=== PATIENT | male | born 1945 | race Caucasian/White ===

== ENCOUNTER 2016-08-31 13:56 | Emergency (ER) | payer OTHER, MEDICARE ==
[2016-08-31 14:14] VITALS: BMI 33.0
--- NOTE | 2016-08-31 14:19 | PDOC ---
History of Present Illness - History of Present Illness Initial Comments: 08/31/16 14:45 The patient is a 70 year old male with a PMHx of HTN who presents to the ED with coughing and chills for 4 days. He reports his cough had green colored sputum. Patient also reports feeling generalized weakness. He denies sick contacts or recent travels. He denies nausea, vomiting, diarrhea. He denies chest pain, shortness of breath. <Khuhsboo Garibay - Last Filed: 08/31/16 14:45> - General History Source: Patient Exam Limitations: No Limitations <Reed Combs - Last Filed: 08/31/16 16:20> - General Chief Complaint: Cold Symptoms Stated Complaint: cough Time Seen by Provider: 08/31/16 13:59 Past History <Khushboo Garibay - Last Filed: 08/31/16 14:45> - Past Medical History HTN: Yes - Surgical History Abdominal Surgery: Yes Appendectomy: Yes - Immunization History Immunization Up to Date: No - Psycho/Social/Smoking Cessation Hx Anxiety: No Suicidal Ideation: No Smoking History: Never smoked Have you smoked in the past 12 months: No Information on smoking cessation initiated: No Hx Alcohol Use: No Drug/Substance Use Hx: No Substance Use Type: None <Reed Combs - Last Filed: 08/31/16 16:20> - Past Medical History Allergies/Adverse Reactions: Allergies Allergy/AdvReac Type Severity Reaction Status Date / Time No Known Allergies Allergy Verified 09/30/14 14:48 Home Medications: Ambulatory Orders Nifedipine ER [Procardia XL -] 60 mg PO DAILY 06/16/14 Valsartan [Diovan] 160 mg PO DAILY 06/16/14 Albuterol Sulfate Inhaler - [Ventolin HFA Inhaler -] 1 - 2 inh PO Q4H PRN #1 inhaler 08/31/16 Azithromycin 250 mg PO DAILY #4 tablet 08/31/16 Review of Systems - Review of Systems Comments:: 08/31/16 14:45 GENERAL/CONSTITUTIONAL: + chills, generalized weakness. No fever. HEAD, EYES, EARS, NOSE AND THROAT: No change in vision. No ear pain or discharge. No sore throat. CARDIOVASCULAR: No chest pain or shortness of breath. RESPIRATORY: + productive cough. No wheezing, or hemoptysis. GASTROINTESTINAL: No nausea, vomiting, diarrhea or constipation. GENITOURINARY: No dysuria, frequency, or change in urination. MUSCULOSKELETAL: No joint or muscle swelling or pain. No neck or back pain. SKIN: No rash NEUROLOGIC: No headache, vertigo, loss of consciousness, or change in strength/ sensation. ENDOCRINE: No increased thirst. No abnormal weight change. HEMATOLOGIC/LYMPHATIC: No anemia, easy bleeding, or history of blood clots. ALLERGIC/IMMUNOLOGIC: No hives or skin allergy. <GaribayKhushboo A - Last Filed: 08/31/16 14:45> *Physical Exam - Vital Signs Last Vital Signs Temp Pulse Resp BP Pulse Ox 98.5 F 73 16 136/90 93 L 08/31/16 13:58 08/31/16 13:58 08/31/16 13:58 08/31/16 13:58 08/31/16 13:58 - Physical Exam Comments: 08/31/16 14:46 GENERAL: Awake, alert, and fully oriented, in no acute distress HEAD: No signs of trauma EYES: PERRLA, EOMI, sclera anicteric, conjunctiva clear ENT: Auricles normal inspection, hearing grossly normal, nares patent, oropharynx clear without exudates. Moist mucosa NECK: Normal ROM, supple, no lymphadenopathy, JVD, or masses LUNGS: Breath sounds equal, clear to auscultation bilaterally. No wheezes, and no crackles HEART: Regular rate and rhythm, normal S1 and S2, no murmurs, rubs or gallops ABDOMEN: Soft, nontender, normoactive bowel sounds. No guarding, no rebound. No masses EXTREMITIES: Normal range of motion, no edema. No clubbing or cyanosis. No cords, erythema, or tenderness NEUROLOGICAL: Cranial nerves II through XII grossly intact. Normal speech, normal gait SKIN: Warm, Dry, normal turgor, no rashes or lesions noted. <Theresa Garibayfarzad English - Last Filed: 08/31/16 14:45> - Vital Signs Last Vital Signs Temp Pulse Resp BP Pulse Ox 98.5 F 73 16 136/90 93 L 08/31/16 13:58 08/31/16 13:58 08/31/16 13:58 08/31/16 13:58 08/31/16 13:58 <Reed Combs - Last Filed: 08/31/16 16:20> Heart Score/ECG Review #1 ECG reviewed & interpreted by me at: 14:40 08/31/16 15:50 NSR 63, no std/abel, TWI III, normal axis, normal intervals, QTC 417 msec <Reed Combs - Last Filed: 08/31/16 16:20> ED Treatment Course - LABORATORY CBC & Chemistry Diagram: 08/31/16 14:25 08/31/16 14:25 <Khushboo Garibay - Last Filed: 08/31/16 14:45> - LABORATORY CBC & Chemistry Diagram: 08/31/16 14:25 08/31/16 14:25 - RADIOLOGY Radiology Studies Ordered: Category Date Time Status CHEST PA & LAT [RAD] Stat Radiology 08/31/16 14:08 Ordered <Reed Combs - Last Filed: 08/31/16 16:20> Medical Decision Making - Medical Decision Making 08/31/16 14:18 A portion of this note was documented by scribe services under my direction. I have reviewed the details of the note, within reason, and agree with the documentation with the following case summary and management plan written by me. Patient treated in the ED. Nursing notes are reviewed and incorporated into the medical decision-making. Vital signs reviewed. Peripheral IV access obtained by the nurse, laboratory studies are drawn and sent, reviewed and interpreted by myself. Vital Signs Temp Pulse Resp BP Pulse Ox 98.5 F 73 16 136/90 93 L 08/31/16 13:58 08/31/16 13:58 08/31/16 13:58 08/31/16 13:58 08/31/16 13:58 70-year-old male with past medical history of hypertension presents with coughing and chills for 4 days. Patient reports feeling generally rundown reports a greenish productive cough. Denies sick contacts or recent travels. We'll need to rule out patient for pneumonia. We'll vital signs his pulse oximeter 93%. Differential includes pneumonia, bronchitis. We'll obtain labs and reassess. 08/31/16 15:45 CBC, BMP 08/31/16 14:25 08/31/16 14:25 CMP Sodium 141 mmol/L (136-145) 08/31/16 14:25 Potassium 4.0 mmol/L (3.5-5.1) 08/31/16 14:25 Chloride 107 mmol/L (98-107) 08/31/16 14:25 Carbon Dioxide 24 mmol/L (22-28) 08/31/16 14:25 Anion Gap 10 (8-16) 08/31/16 14:25 BUN 19 mg/dl (7-18) H 08/31/16 14:25 Creatinine 0.9 mg/dl (0.6-1.3) 08/31/16 14:25 Creat Clearance w eGFR > 60 (>60) 08/31/16 14:25 Random Glucose 101 mg/dl (74-106) 08/31/16 14:25 Calcium 9.8 mg/dl (8.4-10.2) 08/31/16 14:25 Total Bilirubin 0.8 mg/dl (0.2-1.0) 08/31/16 14:25 AST 26 U/L (10-42) 08/31/16 14:25 ALT 23 U/L (10-40) 08/31/16 14:25 Alkaline Phosphatase 57 U/L (32-92) 08/31/16 14:25 Total Protein 7.4 g/dl (6.4-8.3) 08/31/16 14:25 Albumin 4.4 g/dl (3.5-5.0) 08/31/16 14:25 INitially, when pt was getting an IV inserted, the patient became lightheaded and almost had a near syncope. ECG was normal. However, the patient felt better after lying down. I suspect that this was vasovagal. Patient's chest x-ray reviewed by me, pending official read. Demonstrates no infiltrates at this time. Patient's O2 saturation and breathing improved with a dose of albuterol. We'll prescribe albuterol and azithromycin. Diagnosis: Bronchitis. The patient overall is very well-appearing and nontoxic and breathing comfortably. Return precautions given to the patient. I discussed the physical exam findings, ancillary test results and final diagnoses with the patient. I answered all of the patient's questions. The patient was satisfied with the care received and felt comfortable with the discharge plan and treatment plan. The patient will call their primary care physician within 24 hours to arrange follow-up and will return to the Emergency Department with any new, persistant or worsening symptoms. <Reed Combs - Last Filed: 08/31/16 16:20> *DC/Admit/Observation/Transfer - Attestations Scribe Attestion: 08/31/16 14:46 Documentation prepared by Khushboo Garibay, acting as medical donation professional for Reed Combs MD. <Khushboo Garibay - Last Filed: 08/31/16 14:45> - Discharge Dispostion Admit: No <Reed Combs - Last Filed: 08/31/16 16:20> Diagnosis at time of Disposition: Bronchitis - Discharge Dispostion Disposition: HOME Condition at time of disposition: Improved - Prescriptions Prescriptions: Azithromycin 250 mg PO DAILY #4 tablet Albuterol Sulfate Inhaler - [Ventolin HFA Inhaler -] 1 - 2 inh PO Q4H PRN #1 inhaler PRN Reason: Wheezing - Patient Instructions Printed Discharge Instructions: DI for Acute Bronchitis Additional Instructions: Please take 2 puffs of albuterol every 4 hours as needed for wheezing. Take 250 mg of azithromycin daily the next 4 days. If you notice your symptoms are worsening, please return to the ED for further evaluation.
[2016-08-31 14:58] LABS: ALBUMIN 4.4 g/dl (3.5-5.0); ALK PHOS 57 U/L (32-92); ANION GAP 10 (8-16); BILIRUBIN,TOTAL 0.8 mg/dl (0.2-1.0); CALCIUM 9.8 mg/dl (8.4-10.2); CO2 24 mmol/L (22-28); CREATININE 0.9 mg/dl (0.6-1.3); GLUCOSE,RANDOM 101 mg/dl (74-106); SGOT/AST 26 U/L (10-42); SGPT/ALT 23 U/L (10-40); TOT PROT 7.4 g/dl (6.4-8.3)
[2016-08-31 15:02] LABS: BASOPHIL 0.9 % (0-2.0); EOSINOPHIL 1.8 % (0-4.5); MCH 29.3 pg (25.7-33.7); MCHC 34.4 g/dl (32.0-35.9); MEAN CELL VOLUME 85.1 fl (80-96); MEAN PLT VOLUME 9.6 fl (7.5-11.1); NEUTROPHILS 46.8 % (42.8-82.8); PLATELET COUNT 159 K/MM3 (134-434); RDW 12.4 % (11.9-15.9); WHITE BLOOD COUNT 6.5 K/mm3 (4.0-10.0)
[2016-08-31] MEDS ORDERED: ALBUTEROL SO4 0.083% IH SOL 2.5 MG/3 ML VIAL.NEB. NEB ONE ×4 (15:23→15:53)
[2016-08-31] MEDS ORDERED: AZITHROMYCIN 250 MG TABLET (FP) PO ONE (15:28)
[2016-08-31] MEDS ORDERED: AZITHROMYCIN 250 MG TABLET (FP) ONE (15:32)
[2016-08-31 16:12] VITALS: BP 110/80; PULSE 76
[2016-08-31 16:22] VITALS: TEMP 98.6
--- NOTE | 2016-09-01 09:21 | EKG ---
Test Reason : Blood Pressure : / mmHG Vent. Rate : 063 BPM Atrial Rate : 063 BPM P-R Int : 138 ms QRS Dur : 098 ms QT Int : 408 ms P-R-T Axes : 017 029 005 degrees QTc Int : 417 ms NORMAL SINUS RHYTHM NORMAL ECG NO PREVIOUS ECGS AVAILABLE Confirmed by SOLOMON BOWER MD ([id number]) on 09/01/2016 9:21:32 AM Referred By: CARLYN Confirmed By:SOLOMON BOWER MD
== END 2016-08-31 16:43 | disposition home or self-care (01) ==
LOC: FER 13:56
PROC: 3E0F7GC Introduction of Other Therapeutic Substance into Respiratory Tract, Via Natural or Artificial Opening (ICD-10-PCS; principal; 2016-08-31)
DX: J40 Bronchitis, not specified as acute or chronic (principal); I10 Essential (primary) hypertension
CPT/HCPCS: 36415; 71010-TC; 80053; 85025; 93005; 93010; 94640; 99285-25

== ENCOUNTER 2017-07-17 06:37 | Emergency (ER) | payer OTHER, MEDICARE ==
[2017-07-17 06:45] VITALS: BMI 33.0
--- NOTE | 2017-07-17 07:25 | PDOC ---
History of Present Illness - General History Source: Patient Exam Limitations: No Limitations - History of Present Illness Initial Comments: 07/17/17 12:09 The patient is a 71 year old male with past medical history of hypertension and enlarged prostate who presents to the ED with complaints of urinary retention since 6 AM this morning. The patient states he has suprapubic pain and was unable to use the bathroom this morning which has never happened before. He states he usually experiences the opposite where he has urinary frequency. The patient adds that he had taken a creatine supplement for the first time yesterday for working out. Upon arrival to the ED, a frost catheter was placed which drained out over 1260cc of urine. The patient states he feels much better after the frost was placed. He denies any hematuria, dysuria, or flank pain. He denies any fever or chills, nausea, vomiting, or diarrhea. PCP: Dr. Sullivan Urologist: Dr. Chin <Natasha Mukherjee - Last Filed: 07/17/17 12:09> <Bakari Warren - Last Filed: 07/17/17 16:18> - General Chief Complaint: Urinary Problem Stated Complaint: UNABLE TO URINATE Time Seen by Provider: 07/17/17 07:10 Past History <Natasha Mukherjee - Last Filed: 07/17/17 12:09> - Past Medical History COPD: No HTN: Yes - Surgical History Abdominal Surgery: Yes Appendectomy: Yes - Immunization History Immunization Up to Date: No - Suicide/Smoking/Psychosocial Hx Smoking History: Never smoked Have you smoked in the past 12 months: No Information on smoking cessation initiated: No Hx Alcohol Use: No Drug/Substance Use Hx: No Substance Use Type: None <Bakari Warren - Last Filed: 07/17/17 16:18> - Past Medical History Allergies/Adverse Reactions: Allergies Allergy/AdvReac Type Severity Reaction Status Date / Time No Known Allergies Allergy Verified 07/17/17 06:45 Home Medications: Ambulatory Orders Nifedipine ER [Procardia XL -] 60 mg PO DAILY 06/16/14 Valsartan [Diovan] 160 mg PO DAILY 06/16/14 Review of Systems - Review of Systems Able to Perform ROS?: Yes Comments:: 07/17/17 12:09 CONSTITUTIONAL: No reported: Fever, Chills, Diaphoresis, Generalized Weakness, Malaise, Loss of Appetite HEENT: No reported: Rhinorrhea, Nasal Congestion, Throat Pain, Throat Swelling, Difficulty Swallowing, Mouth Swelling, Ear Pain, Eye Pain, Visual Changes CARDIOVASCULAR: No reported: Chest Pain, Syncope, Palpitations, Irregular Heart Rate, Lightheadedness, Peripheral Edema RESPIRATORY: No reported: Cough, Shortness of Breath, SOB with Exertion, Orthopnea, Wheezing , Stridor, Hemoptysis GASTROINTESTINAL: No reported: Abdominal pain, Abdominal Distension, Nausea, Vomiting, Diarrhea, Constipation, Melena, Hematochezia GENITOURINARY: Present: Urinary retention No reported: Dysuria, Frequency,Flank Pain, Genital Pain MUSCULOSKELETAL: No reported: Myalgia, Arthralgia, Joint Swelling, Back pain, Neck Pain SKIN: No reported: Rash, Itching, Pallor HEMEATOLOGIC/IMMUNOLOGIC: No reported: Easy Bleeding, Easy Bruising, Lymphadenopathy, Frequent infections ENDOCRINE: No reported: Unexplained Weight Gain, Unexplained Weight Loss, Heat Intolerance , Cold Intolerance NEUROLOGIC: No reported: Headache, Focal Weakness, Paresthesias, Vertigo, Lightheadedness, Unsteady Gait, Seizure, Mental Status Changes, Incontinence PSYCHIATRIC: No reported: Anxiety, Depression All Other Systems: Reviewed and Negative <Natasha Mukherjee - Last Filed: 07/17/17 12:09> *Physical Exam - Vital Signs Last Vital Signs Temp Pulse Resp BP Pulse Ox 98 F 71 17 140/91 99 07/17/17 09:05 07/17/17 09:05 07/17/17 09:05 07/17/17 09:05 07/17/17 09:05 - Physical Exam Comments: 07/17/17 12:13 GENERAL: The patient is awake, alert, and fully oriented, Nontoxic - in no acute distress. HEAD: Normocephalic, atraumatic. EYES: extraocular movements intact, sclera anicteric, conjunctiva clear. ENT: Normal voice, Moist mucous membranes. NECK: Normal range of motion, supple LUNGS: Breath sounds equal, clear to auscultation bilaterally. No wheezes, no rhonchi, no rales. HEART: Regular rate and rhythm, without murmur, rub or gallop. ABDOMEN: S/p frost catheter. Soft, nontender, normoactive bowel sounds. No guarding, no rebound. EXTREMITIES: Normal range of motion, no edema. No clubbing or cyanosis. No cords , erythema, or tenderness. NEUROLOGICAL: No facial assymetry, Normal speech, PSYCH: Normal mood, normal affect. SKIN: Warm, Dry, normal turgor, <Natasha Mukherjee - Last Filed: 07/17/17 12:09> - Vital Signs Last Vital Signs Temp Pulse Resp BP Pulse Ox 97.1 F L 69 22 144/89 99 07/17/17 06:41 07/17/17 06:41 07/17/17 06:41 07/17/17 06:41 07/17/17 06:41 <Bakari Warren - Last Filed: 07/17/17 16:18> ED Treatment Course - LABORATORY CBC & Chemistry Diagram: 07/17/17 07:25 07/17/17 07:25 - ADDITIONAL ORDERS Additional order review: Laboratory Results 07/17/17 07/17/17 07:25 07:25 Sodium 139 Potassium 4.7 Chloride 106 Carbon Dioxide 21 Anion Gap 12 BUN 25 H Creatinine 1.4 H Creat Clearance w eGFR 50.25 Random Glucose 81 Calcium 8.4 L Total Bilirubin 0.7 AST 30 ALT 24 Alkaline Phosphatase 56 Total Protein 7.0 Albumin 4.2 Urine Color Straw Urine Appearance Clear Urine pH 5.0 Ur Specific [place] 1.006 Urine Protein Negative Urine Glucose (UA) Negative Urine Ketones Negative Urine Blood 2+ H Urine Nitrite Negative Urine Bilirubin Negative Urine Urobilinogen Negative Ur Leukocyte Esterase Negative Urine WBC (Auto) 1 Urine RBC (Auto) 1 Urine Bacteria Few Urine Mucus Rare 07/17/17 07:25 RBC 5.24 MCV 86.5 MCHC 33.6 RDW 13.9 MPV 8.7 Neutrophils % 82.3 Lymphocytes % 9.0 Monocytes % 8.2 Eosinophils % 0.1 Basophils % 0.4 <Natasha Mukherjee - Last Filed: 07/17/17 12:09> - LABORATORY CBC & Chemistry Diagram: 07/17/17 07:25 07/17/17 07:25 <Bakari Warren - Last Filed: 07/17/17 16:18> Medical Decision Making - Medical Decision Making 07/17/17 07:23 71y M hx of htn, presents with urinary retention since last night arund 6pm. Pt denies any other complaints. has known bph but not yet treated. denies any fever/chills, chest pain, back pain. frost inserted will ck Cr to r/o post obstructive uropathy 07/17/17 08:18 pt feeling much improved. total output from frost approx 1260cc of urine pts cr at 1.[address] aaron regarding disposition I discussed the physical exam findings, ancillary test results and final diagnoses with the patient. I answered all of the patient's questions. The patient was satisfied with the care received and felt comfortable with the discharge plan and treatment plan. The patient will call their primary care physician within 24 hours to arrange follow-up and will return to the Emergency Department with any new, persistent or worsening symptoms. A portion of this note was documented by scribe services under my direction. I have reviewed the details of the note, within reason, and agree with the documentation with the following case summary and management plan written by me <Bakari Warren - Last Filed: 07/17/17 16:18> *DC/Admit/Observation/Transfer - Attestations Scribe Attestion: 07/17/17 12:13 Documentation prepared by Natasha Mukherjee, acting as medical billing and coding specialist for Bakari Warren MD. <Natasha Mukherjee - Last Filed: 07/17/17 12:09> - Discharge Dispostion Admit: No <Bakari Warren - Last Filed: 07/17/17 16:18> Diagnosis at time of Disposition: Urinary obstruction - Discharge Dispostion Disposition: HOME Condition at time of disposition: Improved - Referrals Referrals: Royer Chin MD., [Staff Physician] - Jan Sullivan MD [Primary Care Provider] - - Patient Instructions Printed Discharge Instructions: DI for Urinary Retention in Men Additional Instructions: Return to the emergency department immediately with ANY new, persistent or worsening symptoms including fevers/chills, back pain or other concerns. Your creatnine was slightly elevated, please have your doctor recheck this. You MUST call and follow up with Dr. Aaron next week for further evaluation of your symptoms. Results were discussed with you. Please make sure your doctor reviews the results of your emergency evaluation. Print Language: JORDANIAN - Post Discharge Activity
[2017-07-17 07:37] LABS: URINE APPEARANCE CLEAR; URINE BILIRUBIN NEGATIVE (NEGATIVE); URINE BLOOD 2+ (NEGATIVE); URINE COLOR STRAW; URINE GLUCOSE (UA) NEGATIVE (NEGATIVE); URINE KETONE NEGATIVE (NEGATIVE); URINE LEUK ESTERASE NEGATIVE (NEGATIVE); URINE NITRITE NEGATIVE (NEGATIVE); URINE PROTEIN NEGATIVE (NEGATIVE); URINE UROBILINOGEN NEGATIVE mg/dL (0.2-1.0)
[2017-07-17 07:41] LABS: BASO % 0.4 % (0-2.0); EOS % 0.1 % (0-4.5); HEMATOCRIT 45.3 % (35.4-49); HEMOGLOBIN 15.2 GM/dL (11.7-16.9); MCH 29.1 pg (25.7-33.7); MCHC 33.6 g/dl (32.0-35.9); MEAN CELL VOLUME 86.5 fl (80-96); MEAN PLT VOLUME 8.7 fl (7.5-11.1); MONO % 8.2 % (3.8-10.2); NEUT % 82.3 % (42.8-82.8); PLATELET COUNT 210 K/MM3 (134-434); RBC 5.24 M/mm3 (4.00-5.60); RDW 13.9 % (11.9-15.9); WHITE BLOOD COUNT 12.1 K/mm3 (4.0-10.0)
[2017-07-17 07:44] LABS: URINE BACTERIA FEW /hpf (NONE SEEN); URINE MUCUS RARE
[2017-07-17 08:08] LABS: ALBUMIN 4.2 g/dl (3.4-5.0); ALK PHOS 56 U/L (45-117); ANION GAP 12 (8-16); BILIRUBIN,TOTAL 0.7 mg/dL (0.2-1.0); BLOOD UREA NITROGEN 25 mg/dL (7-18); CALCIUM 8.4 mg/dL (8.5-10.1); CHLORIDE 106 mmol/L (98-107); CO2 21 mmol/L (21-32); CREATININE 1.4 mg/dL (0.7-1.3); GLUCOSE,RANDOM 81 mg/dL (74-106); SGPT/ALT 24 U/L (12-78); SODIUM 139 mmol/L (136-145)
[2017-07-17 08:13] LABS: POTASSIUM 4.7 mmol/L (3.5-5.1); SGOT/AST 30 U/L (15-37)
[2017-07-17 09:06] VITALS: BP 140/91; PULSE 71; TEMP 98
== END 2017-07-17 09:06 | disposition home or self-care (01) ==
LOC: JER 06:37 → SUPCPDRO 06:37 → JER 09:06
PROC: 0T9B70Z Drainage of Bladder with Drainage Device, Via Natural or Artificial Opening (ICD-10-PCS; principal; 2017-07-17)
DX: R33.8 Other retention of urine (principal); N40.1 Benign prostatic hyperplasia with lower urinary tract symptoms; I10 Essential (primary) hypertension
CPT/HCPCS: 36415; 51702; 80053; 81003; 81015; 85025; 99282-25

== ENCOUNTER 2017-08-04 20:07 | Emergency (ER) | payer OTHER, MEDICARE ==
--- NOTE | 2017-08-04 20:21 | PDOC ---
Rapid Medical Evaluation Time Seen by Provider: 08/04/17 20:19 Medical Evaluation: Allergies Allergy/AdvReac Type Severity Reaction Status Date / Time No Known Allergies Allergy Verified 07/22/17 09:11 08/04/17 20:19 71 year old male history BPH, had procedure with Dr. Chin and Torres catheter removed today 9am. Returned to office today for retention Torres catheter re- inserted today but it is not draining, patient suspects it is clogged with blood clots. -Extremely uncomfortable -To Main ED for further evaluation
[2017-08-04 20:26] VITALS: BP 145/100; PULSE 90; TEMP 97.9; BMI 33.0
--- NOTE | 2017-08-04 21:20 | PDOC ---
History of Present Illness - General Chief Complaint: Pain Stated Complaint: URINARY CATHETER PROBLEM Time Seen by Provider: 08/04/17 20:19 - History of Present Illness Initial Comments: 08/04/17 21:59 The patient is a 71 year old male with a history of BPH who presents for evaluation of a urinary catheter problem. The patient reports that he recently had prostate clipping done by Dr. Chin and had his catheter removed today. He reported inability to urinate and re-presented to Dr. Chin's office who placed a "special" catheter. The patient reported continued inability to urinate likely due to a clogged catheter and was sent to the ER by Dr. Chin' s office to have the catheter flushed. He reports significant suprapubic abdominal pain, but otherwise denies fevers, chills, SOB, chest pain, nausea or vomiting. Past History - Past Medical History Allergies/Adverse Reactions: Allergies Allergy/AdvReac Type Severity Reaction Status Date / Time No Known Allergies Allergy Verified 08/05/17 04:46 Home Medications: Ambulatory Orders Nifedipine ER [Procardia XL -] 60 mg PO DAILY 06/16/14 Valsartan [Diovan] 160 mg PO DAILY 06/16/14 Tamsulosin HCl [Flomax] 0.4 mg PO HS #14 capsule 07/22/17 Ciprofloxacin [Cipro -] 500 mg PO BID #14 tablet 07/25/17 Oxycodone HCl/Acetaminophen [Percocet 5-325 mg Tablet] 1 - 2 tab PO Q6H #20 tablet MDD 4 08/04/17 COPD: No Disorders: Yes (BPH) HTN: Yes - Surgical History Abdominal Surgery: Yes Appendectomy: Yes - Immunization History Immunization Up to Date: Yes - Suicide/Smoking/Psychosocial Hx Smoking History: Never smoked Have you smoked in the past 12 months: No Information on smoking cessation initiated: No Hx Alcohol Use: No Drug/Substance Use Hx: No Substance Use Type: None Review of Systems - Review of Systems Comments:: 08/04/17 22:04 Constitutional: No fevers, chills, fatigue, malaise HEENT: No Rhinorrhea, nasal congestion, visual changes Cardiovascular: No chest pain, syncope, palpitations, lightheadedness Respiratory: No Cough, SOB, Hemoptysis, Gastrointestinal: Suprapubic abdominal pain. No Nausea, Vomiting, Constipation , Diarrhea, Melena Genitourinary: Inability to urinate. No Dysuria, Frequency, Flank pain Musculoskeletal: No Myalgia, arthralgia Skin: No rashes, itching, bruising, pallor Neurologic: No Headache, Dizziness, Numbness, Weakness, or Tingling Psychiatric: No Hallucinations. No SI or HI *Physical Exam - Vital Signs Last Vital Signs Temp Pulse Resp BP Pulse Ox 97.9 F 90 20 145/100 96 08/04/17 20:24 08/04/17 20:24 08/04/17 20:24 08/04/17 20:24 08/04/17 20:24 - Physical Exam Comments: 08/04/17 22:05 General Appearance: Nourished. No Apparent Distress HEENT: No Pharyngeal Erythema, Tonsillar Exudate, Tonsillar Erythema Neck: No Cervical Lymphadenopathy Respiratory/Chest: Lungs Clear, Normal Breath Sounds. No Crackles, Rales, Rhonchi, Wheezing Cardiovascular: Regular Rhythm, Regular Rate. No Murmur, Gallops, Rubs Gastrointestinal/Abdominal: Normal Bowel Sounds, Soft. Suprapubic tenderness to palpation. No Guarding, Rebound, Genital Exam: Urinary catheter in place with bloody urine within catheter bag. Musculoskeletal: No CVA Tenderness Extremity: Normal Capillary Refill Integumentary: Normal Color, Dry, Warm Neurologic: Fully Oriented, Alert, Normal Mood/Affect, Normal Response, Medical Decision Making - Medical Decision Making 08/04/17 22:06 The patient is a 71 year old male with a history of BPH who presents for evaluation of a urinary catheter problem. Given the patient's history it is likely his symptoms are due to a clogged urinary catheter. The patient's catheter was flushed with return of 900ccs of bloody urine and removal of clots. The patient reports significant improvement in his symptoms after catheter was flushed with improvement of his abdominal pain. We are comfortable discharging the patient home at this time with follow up with Dr. Chin. We discussed the plan with the patient who voiced understanding and is agreeable with the plan. *DC/Admit/Observation/Transfer Diagnosis at time of Disposition: Urinary retention Urinary catheter dysfunction Qualifiers: Encounter type: initial encounter Qualified Code(s): T83.018A - Breakdown ( mechanical) of other urinary catheter, initial encounter - Discharge Dispostion Disposition: HOME Condition at time of disposition: Good Admit: No - Prescriptions Prescriptions: Oxycodone HCl/Acetaminophen [Percocet 5-325 mg Tablet] 1 - 2 tab PO Q6H #20 tablet MDD 4 - Referrals Referrals: Jan Sullivan MD [Primary Care Provider] - Royer Chin MD., MD [Staff Physician] - - Patient Instructions Printed Discharge Instructions: How to Care for Your Torres Catheter -- Male, DI for Urinary Retention in Men Additional Instructions: Please return to the ER if you experience concerning or worsening symptoms including worsening pain, fevers, or inability to urinate. Your catheter was flushed here in the ER. It is extremely important that you call to schedule a follow up appointment with your urologist Dr. Chin within the next 1-2 days to discuss your ER visit and further management of your symptoms. - Post Discharge Activity
--- NOTE | 2017-08-04 21:45 | PDOC ---
Attending Attestation - Resident Resident Name: Calvin Conteh - ED Attending Attestation I have performed the following: I have examined & evaluated the patient, The case was reviewed & discussed with the resident, I agree w/resident's findings & plan, Exceptions are as noted - Physicial Exam PE: 08/04/17 21:47 *Physical Exam General Appearance: Yes: Appropriately Dressed. No: Apparent Distress, Intoxicated HEENT: positive: EOMI, TYLER, Normal ENT Inspection, Normal Voice, TMs Normal, Pharynx Normal. negative: Pale Conjunctivae, Photophobia, Scleral Icterus (R), Scleral Icterus (L) Neck: positive: Trachea midline, Normal Thyroid, Supple. negative: Tender, Rigid, Carotid bruit, Stridor, Lymphadenopathy (R), Lymphadenopathy (L), Thyromegaly Respiratory/Chest: positive: Lungs Clear, Normal Breath Sounds. negative: Chest Tender, Respiratory Distress, Accessory Muscle Use, Labored Respiration, RES, Crackles, Rales, Rhonchi, Stridor, Wheezing, Dullness Cardiovascular: positive: Regular Rhythm, Regular Rate, S1, S2. negative: Edema , JVD, Murmur, Bradycardia, Tachycardia Vascular Pulses: Dorsalis-Pedis (R): 2+, Doralis-Pedis (L): 2+ Gastrointestinal/Abdominal: positive: Normal Bowel Sounds, Flat, Soft. negative : Tender, Organomegaly, Pulsatile Mass, Increased Bowel Sounds, Decreased BS, Distended, Guarding, Rebound, Hernia, Hepatomegaly, Spleenomegaly Lymphatic: negative: Adenopathy, Tenderness Musculoskeletal: positive: Normal Inspection. negative: CVA Tenderness, Decreased Range of Motion Extremity: positive: Normal Capillary Refill, Normal Inspection, Normal Range of Motion, Pelvis Stable. negative: Tender, Pedal Edema, Swelling, Erythema Integumentary: positive: Normal Color, Dry, Warm. 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 negative: EOM Palsy, Facial Droop, Sensory Deficit <Paul Varela - Last Filed: 08/04/17 21:47> - HPI HPI: 08/04/17 22:18 The patient is a 71-year-old male, with a significant past medical history of BPH, who presents to the ED for suprapubic pain s/p catheter placement. The patient had a recent prostate clipping which was performed by Dr. Chin and had his catheter removed today. He was experiencing difficulty urinating and went to Dr. Poe office where they placed a special catheter. The patient is still experiencing difficulty urinating and was sent to the ED by Dr. Poe office to have the catheter flushed. On exam, the patient reports suprapubic pain. The patient denies any fever, chills, nausea, vomiting, or diarrhea. Denies any chest pain or shortness of breath. <Jacquelyn Delcid - Last Filed: 08/04/17 22:21> *Review of Systems - Review of Systems Able to Perform ROS?: Yes Comments:: 08/04/17 22:19 CONSTITUTIONAL: Absent: fever, no chills, no fatigue EYES: Absent: visual changes ENT: Absent: ear pain, no sore throat CARDIOVASCULAR: Absent: chest pain, no palpitations RESPIRATORY: Absent: cough, no SOB GI: Present: suprapubic tenderness Absent: no nausea, no vomiting, no constipation, no diarrhea GENITOURINARY: Present: difficulty urinating Absent: dysuria, no frequency, no hematuria MUSKULOSKELETAL: Absent: back pain, no arthralgia, no myalgia SKIN: Absent: rash NEURO: Absent: headache <Jacquelyn Delcid - Last Filed: 08/04/17 22:21> Attestations - Attestations 08/04/17 22:21 Documentation prepared by Jacquelyn Delcid, acting as medical cost consultant for Paul Varela MD. <Jacquelyn Delcid - Last Filed: 08/04/17 22:21>
== END 2017-08-04 22:14 | disposition home or self-care (01) ==
LOC: JER 20:07
PROC: 3C1ZX8Z Irrigation of Indwelling Device using Irrigating Substance, External Approach (ICD-10-PCS; principal; 2017-08-04)
DX: T83.098A Other mechanical complication of other urinary catheter, initial encounter (principal); Y73.8 Miscellaneous gastroenterology and urology devices associated with adverse incidents, not elsewhere classified; Y92.018 Other place in single-family (private) house as the place of occurrence of the external cause; N40.1 Benign prostatic hyperplasia with lower urinary tract symptoms; R33.8 Other retention of urine; I10 Essential (primary) hypertension
CPT/HCPCS: 99282-25

== ENCOUNTER 2018-12-15 07:55 | Emergency (ER) | payer OTHER, MEDICARE | END 2018-12-15 08:32 | disposition home or self-care (01) | LOC: FER 07:55 ==

== ENCOUNTER 2023-02-20 10:44 | Emergency (ER) | payer OTHER, MEDICARE ==
[2023-02-20 11:18] VITALS: BP 125/70; PULSE 66; RESP 16; TEMP 98.4; BMI 33.6
== END 2023-02-20 12:40 | disposition home or self-care (01) ==
LOC: FER 10:44
DX: Z00.00 Encounter for general adult medical examination without abnormal findings (principal)
CPT/HCPCS: 71046-TC-FY; 74018-TC-FY; 99283-25

== ENCOUNTER 2024-04-03 12:12 | Emergency (ER) | payer MEDICARE, OTHER ==
[2024-04-03 12:34] VITALS: BP 176/93; PULSE 62; RESP 18; TEMP 98.4; BMI 33.6
== END 2024-04-03 13:06 | disposition home or self-care (01) ==
LOC: FER 12:12
DX: J32.9 Chronic sinusitis, unspecified (principal); R09.81 Nasal congestion; R05.9 Cough, unspecified; R50.9 Fever, unspecified; Z20.822 Contact with and (suspected) exposure to COVID-19
CPT/HCPCS: 0241U-QW; 71046-TC-FY; 99284-25